=== PATIENT | male | born 1965 | race Caucasian/White ===

== ENCOUNTER 2023-10-15 17:30 | Emergency (ER) | payer BC, SELFPAY ==
[2023-10-15 17:57] VITALS: PULSE 64; RESP 16; TEMP 37.1; O2SAT 98
== END 2023-10-15 22:54 | disposition left against medical advice (07) ==
LOC: ANHED 22:04
DX: Z53.21 Procedure and treatment not carried out due to patient leaving prior to being seen by health care provider (principal)
CPT/HCPCS: 99199

== ENCOUNTER → 2023-10-25 15:23 | Outpatient (CLI) | payer BC, SELFPAY ==
--- NOTE | ~2023-10-25 | MR_ITS ---
EXAMINATION: MR knee RT wo con DATE: 10/25/2023 15:57 INDICATION: Right knee pain TECHNIQUE: Magnetic resonance imaging (MRI) of the right knee was performed without intravenous contr ast. Sequences included coronal PD-weighted FSE, coronal PD-weighted FS FSE, sagittal T2-weighted FS E, sagittal PD-weighted FS FSE and axial PD weighted fat saturated FSE. COMPARISON: None. FINDINGS: Medial compartment: There is a full-thickness radial tear at the medial side of the posterior horn of the medial meniscus the configuration which is clearly seen on axial series 3, image 18. Shallow chondral ulceration bianca ng the lateral margin of the anterior to central weightbearing medial femoral condyle. Articular cart ilage is otherwise normal. Lateral compartment: Lateral meniscus is normal. Articular cartilage is normal. Patellofemoral compartment: There is a band of deep chondral ulceration extending across the inferior aspect of the lateral steel lar facet and apical ridge. Partial-thickness chondral fissuring more diffusely across the medial pat ellar facet. No degenerative subchondral changes. There is additional partial thickness chondral ulce ration at the medial trochlea with tiny subarticular cystlike change at the inferolateral aspect of t he medial trochlea. Additional partial thickness cartilage loss but with relatively smooth chondral s urface at the inferior aspect of the trochlear groove. Ligaments and tendons: Anterior and posterior cruciate ligaments are normal. Mild thickening of the proximal fibular collate ral ligament without surrounding edema consistent with mild scarring related to chronic sprain. The f ibular collateral ligament is normal. There is mild thickening of the distal popliteus tendon with sm all osteophyte and mild cystlike change at its lateral condylar insertion. Mild patellar tendinopathy . The quadriceps tendon is normal. The visualized medial and lateral hamstring tendons as well as the iliotibial band are normal. Fluid: Physiologic amount of fluid in the joint space. No loose osteochondral bodies identified. Nonspecific subcutaneous edema extending across anterior half of the knee most prominent anterior to the patella r tendon but without discrete bursal fluid collection. Osseous/other: Bone alignment is normal. No fracture or pathologic marrow replacing process. IMPRESSION: 1. Full-thickness radial tear at the posterior horn of the medial meniscus. 2. 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 3. Mild popliteal tendinopathy without tear but with mild cystic change at its lateral condylar inser tion which suggests possible enthesitis. 4. Mild scarring likely related to chronic sprain of the proximal medial collateral ligament.. Reviewed, dictated and finalized at location A. [employer] IMPRESSION: 1. Full-thickness radial tear at the posterior horn of the medial meniscus. 2. 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 3. Mild popliteal tendinopathy without tear but with mild cystic change at its lateral condylar insertion which suggests possible enthesitis. 4. Mild scarring likely related to chronic sprain of the proximal medial collat eral ligament..
== END ==
DX: S83.241A Other tear of medial meniscus, current injury, right knee, initial encounter (principal); X58.XXXA Exposure to other specified factors, initial encounter; M17.11 Unilateral primary osteoarthritis, right knee
CPT/HCPCS: 73721